=== PATIENT | female | born 1955 | race African-American/Black ===

== ENCOUNTER 2017-09-11 07:42 | Emergency (ER) | payer OTHER ==
[~2017-09-11] VITALS: Ht 162.6 cm; Wt 88.5 kg
[2017-09-11 07:46] VITALS: BP 154/91
[2017-09-11] MEDS ORDERED: TRIAMCINOLONE A80 G2 TOP (08:21)
[2017-09-11] MEDS ORDERED: CLEOCIN HCL150 MG PO (08:21)
== END 2017-09-11 08:38 | disposition home or self-care (01) ==
LOC: ER 07:42
DX: L03.213 Periorbital cellulitis (principal); Z88.1 Allergy status to other antibiotic agents

== ENCOUNTER 2019-10-25 07:40 | Emergency (ER) | payer OTHER ==
[~2019-10-25] VITALS: Ht 167.6 cm; Wt 93.4 kg
[~2019-10-25 07:40] MED LIST: CLEOCIN HCL150 MG PO; TRIAMCINOLONE A80 G2 TOP
[2019-10-25 08:54] LABS: URINE BILIRUBIN NEGATIVE (Negative); URINE BLOOD NEGATIVE (Negative); URINE CLARITY CLEAR; URINE COLOR YELLOW; URINE GLUCOSE-RANDOM* NEGATIVE (Negative); URINE KETONES NEGATIVE (Negative); URINE LEUKOCYTES-REFLEX NEGATIVE (Negative); URINE NITRITE-REFLEX NEGATIVE (Negative); URINE PROTEIN (DIPSTICK) NEGATIVE (Negative); URINE SPECIFIC GRAVITY <= 1.005 (1.005-1.035); URINE UROBILINOGEN 0.2 E.U./dl (0.2-1.0)
[2019-10-25 09:36] LABS: ABSOLUTE NEUTROPHILS 2.6 thou/uL (1.4-8.2); BASOPHILS 0.6 % (0.0-2.0); EOSINOPHILS 1.3 % (0.0-3.0); HEMATOCRIT 39.1 % (37.0-47.0); LYMPHOCYTES 42.4 % (24.0-44.0); MCH 29.2 pg (26.0-34.0); MCHC 33.4 g/dL (28.0-37.0); MCV 87.3 fL (80.0-100.0); MONOCYTES 7.5 % (1.0-8.0); PLATELET COUNT 296 thou/uL (150-400); POLYS 48.2 % (36.0-66.0); RBC 4.47 mil/uL (4.20-5.00); RDW 13.9 % (10.5-14.5); WBC 5.4 thou/uL (4.0-11.0)
[2019-10-25 09:46] LABS: CALCIUM 10.4 mg/dL (8.5-10.1); CREATININE 0.9 mg/dL (0.6-1.0); POTASSIUM 3.7 mmol/L (3.5-5.1)
[2019-10-25] MEDS ORDERED: MOBIC15 MG PO (10:34)
[2019-10-25 10:44] VITALS: BP 163/77
== END 2019-10-25 10:51 | disposition home or self-care (01) ==
LOC: ER 07:40
PROVIDERS: Emergency Medicine
DX: R10.31 Right lower quadrant pain (principal); I10 Essential (primary) hypertension; E78.00 Pure hypercholesterolemia, unspecified; Z98.51 Tubal ligation status; Z90.710 Acquired absence of both cervix and uterus; Z88.1 Allergy status to other antibiotic agents

== ENCOUNTER → 2021-05-15 | Outpatient (CLI) | payer OTHER ==
[~2021-05-15] VITALS: Ht 167.6 cm; Wt 94.3 kg
[~2021-05-15] MED LIST changes: +CALCIUM 600 +1 EA11 PO; +EPIPEN0.3 MG/0.1 IM; +FISH OIL 1,0001 EAC9 PO; +HYDROCHLOROTHIA25 M1 PO; +LINZESS145 MCG PO; +LIPITOR40 MG PO; +LOSARTAN POTASS50 MG PO; +MOBIC15 MG PO; +MUPIROCIN1 GM TOP; +OMEPRAZOLE 20 M20 M1 PO; +ONE-A-DAY WOMENS PO; +VITAMIN B-121000 MC2 SUBLING; +YUVAFEM10 MCG VAG
--- NOTE | ~2021-05-15 | P ---
[facility] [place] [address] PROCEDURE REPORT Name: TEMO GARCIA Room #: REG [facility]#: [id number] Admission: 05/15/21 Attend Phys: Joel Bello Discharge: Date of : 53 Report #: [id number] THIS REPORT FOR: cc: Liu Dove MD,Liu Dutton,Joel Caraballo MD ~ DOC #: [id number] cc: MD Joel Schmitt MD DATE OF SERVICE: 05/15/2021 PROCEDURE PERFORMED: Colonoscopy. HISTORY OF PRESENT ILLNESS: The patient is a 65-year-old female who presents today for routine screening colonoscopy. Last colonoscopy was 10 years ago, negative. She denies any symptoms. No family history of colon cancer. DESCRIPTION OF PROCEDURE: The risks and benefits of the procedure were explained to the patient, those risks including but not limited to bleeding, perforation and the risk of sedation. She understood these risks and gave informed consent. Sedation was given using propofol per Anesthesia. Next, a digital rectal exam was initially performed, which was normal. Next, using a standard Olympus colonoscope, the scope was placed in the patient's anus and advanced under direct vision to the cecum. The overall prep was good. The cecum and ileocecal valve were normal in appearance. Ascending, transverse, descending and sigmoid colon were all normal. The rectal mucosa was normal. On retroflexion, no abnormalities were noted. The scope was then withdrawn and the procedure terminated. The patient tolerated the procedure well. IMPRESSION: Normal colonoscopy. RECOMMENDATIONS: 1. High-fiber diet. 2. Repeat colonoscopy in 10 years. Thank you for allowing me to participate in her care. Joel Dutton MD CCM/DEB/SREEKANTH [facility] [address] [place] [address] PROCEDURE REPORT Name: TEMO GARCIA [facility] #: [facility] [id number] Admission: 05/15/21 Attend Phys: Joel Bello Discharge: Date of : 53 Report #: [id number] By: [id number] Joel Dutton MD /nt
== END | disposition home or self-care (01) ==
LOC: GI 09:35
PROVIDERS: ATTEND Specialist
DX: Z12.11 Encounter for screening for malignant neoplasm of colon (principal); I10 Essential (primary) hypertension; E11.9 Type 2 diabetes mellitus without complications; E78.00 Pure hypercholesterolemia, unspecified; K21.9 Gastro-esophageal reflux disease without esophagitis; Z98.890 Other specified postprocedural states; Z79.899 Other long term (current) drug therapy; Z90.710 Acquired absence of both cervix and uterus; Z98.51 Tubal ligation status; Z88.8 Allergy status to other drugs, medicaments and biological substances
CPT/HCPCS: 62110; 62900